=== PATIENT | female | born 1990 | race African-American/Black ===

== ENCOUNTER 2021-08-10 11:32 | Emergency (ER) | payer SELFPAY ==
[2021-08-10 11:39] VITALS: BP 132/66; PULSE 68; RESP 20; TEMP 36.2; O2SAT 100
[2021-08-10 12:56] LABS: Basophils Percent Auto 0.2 % (0.2-1.2); Eosinophils Absolute Auto 0.1 K/mm3 (0-0.3); Eosinophils Percent Auto 1.1 % (0-4.4); Hematocrit 35.7 % (37.0-47.0); Immature Granulocyte Absolute 0.02 K/mm3 (0.00-0.031); Immature Granulocyte Percent A 0.4 % (0-0.5); Lymphocytes Absolute Auto 1.02 K/mm3 (0.9-3.2); Lymphocytes Percent Auto 22.4 % (18.3-44.2); Mean Corpuscular HGB Conc 33.6 g/dl (32-36); Mean Corpuscular Hemoglobin 31.9 pg (26-34); Mean Corpuscular Volume 94.9 fl (80-100); Mean Platelet Volume 9.7 fl (7.4-10.4); Monocytes Absolute Auto 0.3 K/mm3 (0.1-0.6); Monocytes Percent Auto 5.7 % (2.6-8.5); Neutrophils Absolute Auto 3.2 K/mm3 (1.3-6.7); Neutrophils Percent Auto 70.2 % (45.5-73.1); Platelet Count Result 268 k/mm3 (150-375); Red Blood Count 3.76 M/mm3 (4.2-5.4); White Blood Count 4.6 K/mm3 (4.5-10.0)
--- NOTE | 2021-08-10 14:15 | PC.NURSE ---
patient left treatment area before treatment complete
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
== END 2021-08-10 14:17 | disposition left against medical advice (07) ==
PROVIDERS: Physician Assistant; Emergency Provider Emergency Medicine
DX: T24.212D Burn of second degree of left thigh, subsequent encounter (principal); W40.8XXD Explosion of other specified explosive materials, subsequent encounter
CPT/HCPCS: 36415; 85025; 99281; 99283

== ENCOUNTER 2022-08-09 13:07 | Emergency (ER) | payer SELFPAY ==
[2022-08-09 13:32] VITALS: BP 102/68; PULSE 70; RESP 16; TEMP 36.6; O2SAT 99
--- NOTE | 2022-08-09 15:20 | PC.NURSE ---
Dr. Nation at bedside to assess pt.
--- NOTE | 2022-08-09 20:20 | ED.GENADULT ---
HPI - General Adult General Chief complaint: Back Pain/Injury Stated complaint: back pain for months Time Seen by Provider: 08/09/22 15:11 History of Present Illness HPI narrative: Patient with a history of 3 years of back pain for which she has been evaluated extensively by multiple doctors including surgeons, and has had multiple MRIs, has had physical therapy, joint steroid injections, and chiropractory but still with persistent pain presents here with the same pain. Related Data Allergies Allergy/AdvReac Type Severity Reaction Status Date / Time No Known Allergies Allergy Unverified 10/27/18 00:20 Review of Systems Review of Systems: CONST: No fever. HEENT: No sore throat C/V: No chest pain RESP: No cough GI: No abdominal pain : No dysuria. M/S: Right-sided mid back pain SKIN: No rash. NEURO: [No headache or focal numbness or weakness] PSYCH: Feeling upset PMFSH Past Medical History Medical History (Updated 08/09/22 @ 20:21 by Dionna Natino MD) Chronic back pain Exam Narrative: EXAMINATION OF ORGAN SYSTEMS/BODY AREAS: Constitutional: Vital signs per nursing GENERAL:[No acute distress, non-toxic appearing.] HEAD: Normal with no signs of head trauma. EYES: EOMI, conjunctiva normal ENT: Hearing grossly intact LUNGS: Nonlabored breathing. HEART: [Regular rate and rhythm] ABD: [Soft], [nontender to palpation] BACK: Soft tissue tenderness at trapezius and along midback EXT: Normal range of motion SKIN: [No rashes or lesions.] NEURO: [Alert and oriented x 3. No gross focal sensory or strength deficits.] PSYCH: Normal affect Course Vital Signs Vital signs: Vital Signs Temperature 98 F 08/09/22 13:32 Pulse Rate 70 08/09/22 13:32 Respiratory Rate 16 08/09/22 13:32 Blood Pressure 102/68 08/09/22 13:32 Pulse Oximetry 99 08/09/22 13:32 Temperature 98 F 08/09/22 13:32 Pulse Rate 70 08/09/22 13:32 Respiratory Rate 16 08/09/22 13:32 Blood Pressure 102/68 08/09/22 13:32 Pulse Oximetry 99 08/09/22 13:32 Medical Decision Making [facility] Narrative Medical decision making narrative: 31-year-old female presenting with chronic back pain, she has MRI results from her spine all of which show no acute abnormality other than some mild arthritis. I discussed with the patient that we are likely not been to be able to figure out the cause of her back pain that she has been having for 3 years today, but I did feel she could benefit from follow-up with rheumatology if there is any further work-up to be done for ruling out any sort of myositis, for other medical causes for her pain. She is amenable to trying a steroid course in case it may help with any sort of joint inflammation. She can return for any further or new issues. Vital Signs Vital Signs: Vital Signs Temperature 98 F 08/09/22 13:32 Pulse Rate 70 08/09/22 13:32 Respiratory Rate 16 08/09/22 13:32 Blood Pressure 102/68 08/09/22 13:32 Pulse Oximetry 99 08/09/22 13:32 Temperature 98 F 08/09/22 13:32 Pulse Rate 70 08/09/22 13:32 Respiratory Rate 16 08/09/22 13:32 Blood Pressure 102/68 08/09/22 13:32 Pulse Oximetry 99 08/09/22 13:32 Discharge Plan Discharge Clinical Impression: Back pain Patient Disposition: Home, Self-Care Condition: Stable Instructions: Antibiotic Form, Back Pain (ED) Additional Instructions: Please follow up with the data support analyst in case there is any other workup that needs to be done to diagnose your symptoms. You can alway return if you feel worse. Prescriptions: New prednisone 50 mg tablet 50 mg PO DAILY Qty: 5 0RF Follow-up/Referrals: Sue Stauffer MD [Physician] - 2 Days PHYSICIAN,STUDIO DIRECTOR [Primary Care Provider] -
== END 2022-08-09 16:05 | disposition home or self-care (01) ==
PROVIDERS: Emergency Provider Emergency Medicine
DX: M54.9 Dorsalgia, unspecified (principal); G89.29 Other chronic pain
CPT/HCPCS: 99283